=== PATIENT | female | born 1980 | race Caucasian/White ===

== ENCOUNTER 2017-04-25 20:42 | Emergency (ER) | payer OTHER ==
[~2017-04-25] VITALS: Ht 170.2 cm; Wt 72.7 kg
[2017-04-26] MEDS ORDERED: BUPIVACAINE HCL 0.5% 10 ML VIAL SC ONE (02:30)
[2017-04-26] MEDS ORDERED: AUGM500T34 PO (02:58)
[2017-04-26] MEDS ORDERED: AUGMENTIN 875 MG TAB PO ONE (03:00)
[2017-04-26] MEDS ORDERED: NORCO 5/325MG TABLET (BULK FOR ED) PO ONE (03:00)
[2017-04-26 03:27] VITALS: BP 123/70
--- NOTE | 2017-04-26 08:16 | REP ---
REASON: Injured during fishing. PRIORS: None. There is a J-shaped metally radiodensity imbedded in the soft tissues of the tip of the first digit of the left hand consistent with a fishhook. There is no osseous involvement. Signed by Gen Murillo DO 04/26/2017 10:37 A
== END 2017-04-26 03:29 | disposition home or self-care (01) ==
LOC: M ED 20:42
DX: S61.032A Puncture wound without foreign body of left thumb without damage to nail, initial encounter (principal); W26.8XXA Contact with other sharp object(s), not elsewhere classified, initial encounter; Y92.9 Unspecified place or not applicable; Y93.9 Activity, unspecified; Y99.9 Unspecified external cause status